=== PATIENT | male | born 1995 | race Caucasian/White ===

== ENCOUNTER 2019-10-08 09:30 | Inpatient (IN) | payer BC ==
[~2019-10-08] VITALS: Ht 185.4 cm; Wt 86.2 kg
[2019-10-08 09:34] VITALS: BP 148/91
[2019-10-08 09:57] LABS: URINE BILIRUBIN NEGATIVE (Negative); URINE BLOOD NEGATIVE (Negative); URINE CLARITY CLEAR; URINE COLOR YELLOW; URINE GLUCOSE-RANDOM* NEGATIVE (Negative); URINE KETONES NEGATIVE (Negative); URINE LEUKOCYTES-REFLEX NEGATIVE (Negative); URINE NITRITE-REFLEX NEGATIVE (Negative); URINE PROTEIN (DIPSTICK) NEGATIVE (Negative); URINE SPECIFIC GRAVITY 1.025 (1.005-1.035)
[2019-10-08 09:58] LABS: BASOPHILS 0.3 % (0.0-2.0); EOSINOPHILS 0.7 % (0.0-3.0); HEMATOCRIT 48.6 % (42.0-52.0); LYMPHOCYTES 20.3 % (24.0-44.0); MCH 32.6 pg (26.0-34.0); MONOCYTES 10.6 % (1.0-8.0); PLATELET COUNT 197 thou/uL (150-400); POLYS 68.1 % (36.0-66.0); RBC 5.23 mil/uL (4.50-6.00); RDW 12.5 % (10.5-14.5); WBC 10.3 thou/uL (4.0-11.0)
[2019-10-08 10:08] LABS: CALCIUM 9.6 mg/dL (8.5-10.1); POTASSIUM 4.2 mmol/L (3.5-5.1)
[2019-10-08 10:15] LABS: ALBUMIN 4.7 g/dL (3.4-5.0); TOTAL BILIRUBIN 2.1 mg/dL (0.2-1.0); TOTAL PROTEIN 8.2 g/dL (6.4-8.2)
[2019-10-08 15:13] VITALS: BP 138/80
[2019-10-08 15:35] VITALS: BP 146/78
--- NOTE | 2019-10-08 18:03 | NUR ---
PATIENT ADMITTED FORM ER WITH APPENDICITIS, PATIENT C/O MILD PAIN WITH RIGHT LOWER QUAD 2/10, REFUSED PAIN MEDS AT THIS TIME. PATIENT DENIES NAUSEA. PATIENT WILL BE NPO AFTER MIDNIGHT FOR SURGERY IN AM. ADMISSION COMPLETED, WILL REPORT OFF TO AILEEN/GLADIS.
[2019-10-08 20:00] VITALS: BP 127/84
--- NOTE | 2019-10-09 04:12 | NUR ---
RECIEVED CARE OF THIS PATIENT AT 1900. PATIENT ALERT AND ORIENTED X4. UP AD ELVA. HAS BEEN NPO SINCE [facility] FOR SURGERY THIS AM. IN IN RAC. DENIES PAIN. SLEPT MOST OF NIGHT.
[2019-10-09] MEDS ORDERED: IBUPROFEN 200200 M1 PO (07:33)
[2019-10-09] MEDS ORDERED: TYLENOL325 MG PO (07:33)
[2019-10-09] MEDS ORDERED: OXYCODONE HCL 55 MG PO (07:33)
[2019-10-09] MEDS ORDERED: COLACE 100 MG100 MG PO (07:33)
[2019-10-09] MEDS ORDERED: MIRALAX17 GM PO (07:33)
[2019-10-09 09:30] VITALS: BP 146/88
[2019-10-09 10:52] VITALS: BP 146/88
--- NOTE | 2019-10-09 13:29 | NUR ---
DC ORDERS RECEIVED. IV REMOVED FROM R AC. DC INSTRUCTIONS, F/U APPOINTMENT REVIEWED WITH PT. SCRIPTS SENT TO PHARMACY BY .
--- NOTE | 2019-10-10 15:08 | PATH ---
[facility] [address] [place] [address] PATHOLOGY RPT PROCEDURE Name: DWAINE SKY Room #: 438-P DIS IN M.R.#: [id number] Admission: 10/08/19 Date of : 89 Discharge: 10/09/19 Report #: [id number] Path Case #: [id number] [facility] Accession Number: [id number] . 01 Material submitted: . appendix - APPENDIX . 01 Clinical history: . appendicitis . 02 Diagnosis: Appendix, appendectomy: - Marked acute appendicitis along with marked acute serositis. . (IUV:mml; 10/10/2019) [facility] 10/10/2019 1156 Local . 02 Electronically signed: . Francoise Ernst MD, Pathologist NPI- [id number] . 01 Gross description: . The specimen is received in formalin, labeled "Dwaine Sky, appendix" and consists of an intact purple valentin appendix measuring 6.6 cm in length and 0.8 cm in diameter with attached mesoappendix measuring 1.4 cm in thickness. The proximal margin is inked. Sectioning reveals a lumen ranging from pinpoint to dilated up to 0.4 cm in diameter containing hemorrhagic material. Wet Room Worker sections are submitted in A1. (AYANNA; 10/09/2019) JFQ/JFYovanny 10/09/2019 1727 Local . 02 Pathologist provided ICD-10: K35.80, K65.8 . 02 CPT . 434493 Specimen Comment: A courtesy copy of this report has been sent to [phone] Specimen Comment: Report sent to / DR DOSHI Performed at: [address], [place] [id number] MD Kaushik Lenz MD Phone: [phone] Performed at: [address] [id number] MD Francoise Ernst MD Phone: [phone]
== END 2019-10-09 11:56 | disposition home or self-care (01) | DRG 343 ==
LOC: ER 09:30 → EROBS 12:01 → 4S 12:01
PROVIDERS: Emergency Medicine; ADMIT Surgery; ATTEND Surgery
PROC: 0DTJ4ZZ Resection of Appendix, Percutaneous Endoscopic Approach (ICD-10-PCS; principal; 2019-10-09)
DX: K35.80 Unspecified acute appendicitis (principal); Z20.828 Contact with and (suspected) exposure to other viral communicable diseases; Z79.899 Other long term (current) drug therapy
CPT/HCPCS: 10195; 50010; 50101; 50249; 50411; 50445; 50555; 50558; 50739; 50740; 52265; 53307; 53310; 53312; 54022; 54118; 56525; 56526; 62110; 62900; 70005

== ENCOUNTER 2020-06-13 19:22 | Emergency (ER) | payer BC ==
[~2020-06-13] VITALS: Ht 185.4 cm; Wt 93.9 kg
[~2020-06-13 19:22] MED LIST: COLACE 100 MG100 MG PO; IBUPROFEN 200200 M1 PO; MIRALAX17 GM PO; OXYCODONE HCL 55 MG PO; TYLENOL325 MG PO
[2020-06-13 21:53] VITALS: BP 169/100
== END 2020-06-14 03:53 | disposition home or self-care (01) ==
LOC: ER 19:22
DX: R50.9 Fever, unspecified (principal); M79.10 Myalgia, unspecified site; Z90.89 Acquired absence of other organs; Z79.1 Long term (current) use of non-steroidal anti-inflammatories (NSAID); Z20.822 Contact with and (suspected) exposure to COVID-19